=== PATIENT | female | born 1955 ===

== ENCOUNTER 2024-10-06 17:43 | Emergency (ER) | payer MEDICARE, SELFPAY ==
[2024-10-06 17:46] VITALS: BP 190/120
--- NOTE | 2024-10-06 17:46 | ED.GENMED ---
ED Provider Triage
<Valentín Boss Jr., PA-C - Last Filed: 10/06/24 17:51>
-
Patient seen by provider in Triage?: Seen in Triage
Attestation: A medical screening examination has been initiated by a qualified medical provider. Based on the assessment performed at this time, it has been determined that an emergent medical condition may exist and the patient has been informed
that further medical evaluation and possible additional diagnostic testing may be needed.
HPI: 69-year-old female presenting to the emergency department with concerns of elevated blood pressure which she has been dealing with for a long period of time recently was changed from labetalol to spironolactone a few days ago for increased
control from the primary care provider. She started feeling some nausea and felt sweaty today with primary come to the ER. Here she denies any specific chest pain or shortness of breath. Initial labs and EKG ordered blood pressure is not
significantly elevated upon arrival here but patient generally well-appearing
GENERAL: Alert , in no apparent distress
EYE: No visual abnormalities.
NECK: Trachea midline
ENT: No visible abnormalities.
LUNGS: No acute respiratory distress
NEUROLOGICAL: Alert and oriented
SKIN: Skin intact. No visible changes.
MUSCULOSKELETAL: Moving extremities normally
PSYCH: Normal and appropriate interaction.
This is a medical evaluation conducted in person to initiate diagnostic evaluation and provide initial therapeutics. Please see further documentation by the treating clinician.
History of Present Illness
<Valentín Boss Jr., PA-C - Last Filed: 10/06/24 17:51>
General
Chief Complaint: Blood Pressure Problem
Time Seen by Provider: 10/06/24 21:23
<HELLEN Barnett - Last Filed: 10/07/24 00:54>
General
Source: patient
Exam Limitations: none
History of Present Illness
History of Present Illness:
This is a 69 year old female that comes in with c/o Hypertension. States that her BP has been elevated recently. States that today in the morning before she took her medication it was 197/110. States that she called Dr. Neumann office. States that
on Sunday they changed her medication and stopped her Labetalol and started her on Losartan 50mg BID and gave her Spironolactone 12.5 daily. States that she felt nauseated tonight and her BP was up and people were telling her she needed to get
checked. States that she was sweaty, is SOB with activity, nausea, occasionally has a headache but she felt this was more a sinus headache. Denies any fever, chills, chest pain, abd pain, vomiting, diarrhea, dizziness, urinary burning.
Past History
<HELLEN Barnett - Last Filed: 10/07/24 00:54>
Past History
ED Past Medical History: HTN and Other (Sleep apnea, Glaucoma, )
ED Past Surgical History: Appendectomy, (X 2), Gynecological (Left ovary removed) and Other (Hernia surgery, Sinus surgery, )
Social History
Tobacco: Non-smoker
Alcohol: None
Personal:
Living: with family
Review of Systems
<HELLEN Barnett - Last Filed: 10/07/24 00:54>
Review of Systems
All Other Systems: ROS reviewed and negative except as documented in HPI and ROS
Constitutional: Reports no symptoms; Denies fever or chills
EENT: Reports no symptoms
Respiratory: Reports trouble breathing (with activity); Denies cough
Cardiac: Denies chest pain
ABD/GI: Reports nausea; Denies abdominal pain, vomiting or diarrhea
: Reports no symptoms; Denies dysuria, frequency or urgency
Musculoskeletal: Reports no symptoms
Skin: Reports no symptoms
Neurological: Reports headache (occasional like a sinus headache); Denies dizzy
Psychiatric: Reports no symptoms
Phy Exam
<HELLEN Barnett - Last Filed: 10/07/24 00:54>
General Physical Exam
General Presentation: well appearing and no apparent distress
General age: appears stated age
General Skin: warm and dry
General Habitus: normal
General Mental: alert
General Hydration: appears well hydrated
ENT Exam
ENT Exam: TM's normal, pharynx normal and neck supple
Eye Exam
Eye Exam: EOMI
Cardiovascular Exam
Cardiovascular Exam: regular rate/rhythm, no edema, no murmur and normal peripheral pulses
Pulmonary Exam
Pulmonary Exam: lungs clear, no respiratory distress, no rales, chest non tender, no crackles, no rhonchi, no wheezing and no cough
Gastrointestinal Exam
Gastrointestinal Exam: normal bowel sounds, non tender, soft, no organomegaly, no pulsatile mass and non distended
Musculoskeletal Exam
Musculoskeletal Exam: full ROM and no edema
Skin Exam
Skin Exam: normal color, warm/dry, no rash and no petechia
Psychiatric Exam
Psychiatric Exam: normal mood/affect
Course
<Valentín Boss Jr., PA-C - Last Filed: 10/06/24 17:51>
Orders/Labs/Results
Orders:
Orders
10/06/24 17:47
Electrocardiogram (*1) Stat
Reason for Study: Other
Other Reason for Exam: chest pain
EKG- Treatment ONCE
10/06/24 18:04
Complete Blood Count/With Diff Urgent
Comprehensive Metabolic Panel Urgent
Magnesium Urgent
Troponin I Urgent
10/06/24 22:16
Lorazepam [Ativan] 0.5 mg PO NOW STA
Abnormal Lab Results
10/06/24
18:04
Hct 36.7 L %
(37.0-47.0)
MCV 80.3 L fL
(81.0-99.0)
MCH 26.5 L pg
(27.0-31.0)
RDW 14.6 H %
(11.5-14.5)
Abs Immat Gran (auto) 0.1 H 10^3/uL
(0-0.05)
Absolute Neuts (auto) 7.6 H 10^3/uL
(1.4-6.5)
Lymphocytes % 17.7 L %
(20.5-51.1)
BUN 26 H mg/dl
(7-17)
Glucose 107 H mg/dl
(70-99)
10/06/24 18:04
10/06/24 18:04
Vital Signs
Initial and Last Documented VS:
Initial Vital Signs
Temp Pulse Resp BP Pulse Ox
98.2 F 99 16 190/120 97
10/06/24 17:46 10/06/24 17:46 10/06/24 17:46 10/06/24 17:46 10/06/24 17:46
Last Documented Vital Signs
Temp Pulse Resp BP Pulse Ox
98.2 F 99 16 193/100 97
10/06/24 17:46 10/06/24 17:46 10/06/24 17:46 10/07/24 00:00 10/06/24 17:46
<HELLEN Barnett - Last Filed: 10/07/24 00:54>
Orders/Labs/Results
Orders:
Orders
10/06/24 17:47
Electrocardiogram (*1) Stat
Reason for Study: Other
Other Reason for Exam: chest pain
EKG- Treatment ONCE
10/06/24 18:04
Complete Blood Count/With Diff Urgent
Comprehensive Metabolic Panel Urgent
Magnesium Urgent
Troponin I Urgent
10/06/24 22:16
Lorazepam [Ativan] 0.5 mg PO NOW STA
Abnormal Lab Results
10/06/24
18:04
Hct 36.7 L %
(37.0-47.0)
MCV 80.3 L fL
(81.0-99.0)
MCH 26.5 L pg
(27.0-31.0)
RDW 14.6 H %
(11.5-14.5)
Abs Immat Gran (auto) 0.1 H 10^3/uL
(0-0.05)
Absolute Neuts (auto) 7.6 H 10^3/uL
(1.4-6.5)
Lymphocytes % 17.7 L %
(20.5-51.1)
BUN 26 H mg/dl
(7-17)
Glucose 107 H mg/dl
(70-99)
10/06/24 18:04
10/06/24 18:04
Slight anemia, Dehydration. Glucose nonfasting. Troponin <0.012
Vital Signs
Initial and Last Documented VS:
Initial Vital Signs
Temp Pulse Resp BP Pulse Ox
98.2 F 99 16 190/120 97
10/06/24 17:46 10/06/24 17:46 10/06/24 17:46 10/06/24 17:46 10/06/24 17:46
Last Documented Vital Signs
Temp Pulse Resp BP Pulse Ox
98.2 F 99 16 193/100 97
10/06/24 17:46 10/06/24 17:46 10/06/24 17:46 10/07/24 00:00 10/06/24 17:46
<HELLEN Barnett - Last Filed: 10/07/24 00:54>
MDM/Problems Addressed
Differential Diagnosis Includes:
Hypertension
MDM/Problems Addressed:
This is a 69 year old female that comes in with c/o Hypertension. States that this has been going on and they changed her Medication on Sunday States that tonight she felt a little nauseated and people were telling her he better get checked.
Will get labs, and have patient take her Night Dose of her Losartan 50mg and then recheck.
Back into see patient. States that she is more relaxed and wants to go home to bed. Explained that she needs to call the [facility] office tomorrow and discuss with them how they want to handle her Hypertension. They may decided to add a Third
medication. Patient to return with any concerns.
Chronic conditions affecting care: HTN
Acute Exacerbation and/or Progression of Chronic Illness: HTN
<HELLEN Barnett - Last Filed: 10/07/24 00:54>
*Pulse Oximetry
Patient hypoxic: no
*EKG
Interpreted by ED Provider?: Yes
Heart Rate: 96
Rate: normal
Rhythm: sinus
[place]: normal axis
Interval: normal interval
QRS Pattern: normal QRS
Ischemia: no ischemia
*Epic Trainer Interpretation
Rate: Epic Trainer- N/A
*Critical Care Note
Total Time (30-74mins, 75-104mins- exclusive of procedures): Not Applicable
ED Attending Note
<Valentín Boss Jr., PA-C - Last Filed: 10/06/24 17:51>
-
Portions of this chart may have been created with voice recognition software.� Occasional wrong word or��sound alike� substitutions may have occurred due to the inherent limitations of voice recognition software.
Discharge Plan
Departure
Patient Disposition: Home (Routine Discharge)
Date of Disposition: 10/07/24
Time of Disposition: 00:46
Patient with high blood pressure during this ER visit?: Yes
Condition: Good
Covid-19: Not Applicable
Discharge Problem:
Hypertension
Instructions: High Blood Pressure (DC), BLOOD PRESSURE
Referrals:
Ruy Neumann MD [Active] - Follow up in 2-3 days
Lavern Llanos CRNP [Family Provider] - Follow up in 2-3 days
Activity Restrictions/Additional Instructions:
As discussed your blood work shows you are a little Dehydrated. Please increase your water intake to 8-8oz glasses daily. Please continue with your BP medication as directed. When taking your blood pressure please sit for 5 min with feet flat on
the floor and arm level with your heart before taking your Pressures. PLEASE CALL THE [facility] [facility] OFFICE TOMORROW FOR FURTHER EVALUATION. They may wish to add a medication or change your medication. IF YOU HAVE ANY OTHER CONCERNS PLEASE RETURN TO
THE EMERGENCY ROOM
Interventions
Interventions:
*Risk Screen - Suicide Last Done: 10/06/24 17:46
*General Assessment Last Done: 10/06/24 21:28
*Neglect/Abuse Screening Last Done: 10/06/24 17:46
ED- Fall Risk Assessment Last Done: 10/06/24 21:28
*ED COVID-19 Vaccine History Last Done: 10/06/24 21:28
ED- Cardiac Assessment Last Done: 10/06/24 21:28
ED- Neurological Assessment Last Done: 10/06/24 21:28
ED- Pulmonary Assessment Last Done: 10/06/24 21:28
Discharge Date and Time
Print Language: EGYPTIAN
[2024-10-06 18:25] LABS: % Basophils 0.4 % (0-2); % Eosinophils 1.4 % (0-6); % Immature Granulocytes 0.5 % (0-0.5); % Lymphocytes 17.7 % (20.5-51.1); % Monocytes 4.8 % (1.7-9.3); % Neutrophils 75.2 % (42.2-75.2); Absolute Eosinophils 0.1 10^3/uL (0-0.7); Absolute Immature Granulocytes 0.1 10^3/uL (0-0.05); Absolute Lymphocytes 1.8 10^3/uL (1.2-3.4); Absolute Monocytes 0.5 10^3/uL (0.1-0.6); Absolute Neutrophils 7.6 10^3/uL (1.4-6.5); Hematocrit 36.7 % (37.0-47.0); Hemoglobin 12.1 g/dL (12.0-16.0); Mean Corpuscular Hgb 26.5 pg (27.0-31.0); Mean Corpuscular Volume 80.3 fL (81.0-99.0); Mean Platelet Volume 9.1 fL (7.4-10.4); Nucleated Red Blood Cells % 0 %; Platelet Count 283 10^3/uL (130-400); Red Blood Cell Count 4.57 10^6/uL (4.20-5.40); Red Cell Dist. Width 14.6 % (11.5-14.5); White Blood Cell Count 10.1 10^3/uL (4.8-10.8)
[2024-10-06 18:33] LABS: ALT (SGPT) 31 U/L (0-35); AST (SGOT) 28 U/L (14-36); Albumin 4.8 g/dl (3.5-5.0); Alkaline Phosphatase 96 U/L (38-126); Blood Urea Nitrogen 26 mg/dl (7-17); Calcium 10.2 mg/dl (8.4-10.2); Carbon Dioxide 25 mmol/L (22-30); Chloride 98 mmol/L (98-107); Glucose 107 mg/dl (70-99); Magnesium 1.6 mg/dl (1.6-2.3); Potassium 4.3 mmol/L (3.5-5.1); Sodium 135 mmol/L (135-145); Total Bilirubin 0.9 mg/dl (0.2-1.3); Total Protein 7.6 g/dl (6.3-8.2); eGFR > 60.00
[2024-10-06 18:42] LABS: Troponin I < 0.012 ng/ml
[2024-10-06 21:28] VITALS: BMI 33.2
[2024-10-06 21:40] VITALS: BP 191/92
[2024-10-06 22:00] VITALS: BP 147/104
[2024-10-06 22:08] VITALS: BP 176/111
[2024-10-06] MEDS: ATIVAN 0.5 MG PO (22:36)
[2024-10-06 23:00] VITALS: BP 177/80
[2024-10-07] VITALS: BP 193/100
[2024-10-07 00:07] VITALS: BP 186/100
[2024-10-07 01:26] VITALS: BP 163/105
== END 2024-10-07 01:33 | disposition home or self-care (01) ==
LOC: EMR 17:43
PROVIDERS: Physician Assistant; EMERGENCY PHYSICIAN Emergency Medicine; FAMILY PHYSICIAN Nurse Practitioner Family
DX: I10 Essential (primary) hypertension (principal); G47.30 Sleep apnea, unspecified; H40.9 Unspecified glaucoma; E86.0 Dehydration; Z90.49 Acquired absence of other specified parts of digestive tract; Z90.721 Acquired absence of ovaries, unilateral
CPT/HCPCS: 99283; 80053; 83735; 84484; 85025; 93005